=== PATIENT | female | born 1980 | race American Indian/Alaskan Native ===

== ENCOUNTER 2020-07-15 16:53 | Emergency (ER) | payer SELFPAY ==
[2020-07-15 17:11] VITALS: BP 128/77
[2020-07-15] MEDS ORDERED: KETOROLAC 10 MG TAB PO ONE ×2 (17:30→19:36)
--- NOTE | 2020-07-15 17:30 | Emergency Department Report ---
ED Female HPI - General Chief complaint: Vaginal Bleeding Stated complaint: VAGINAL BLEEDING Time Seen by Provider: 07/15/20 17:25 Source: patient Mode of arrival: Ambulatory Limitations: No Limitations - History of Present Illness Initial comments: Patient is a 39-year-old female presents emergency room complaints of vaginal bleeding that began yesterday. She states she used approximately 9 menstrual pads yesterday. She states that it has improved today and she is used approximately 5 pads. She states her last normal menstrual cycle was 07/05/2020 and lasted approximately 3 days. She states that her cycles typically last 3 days. She states that she last saw her AUDIO VISUAL TECHNICIAN in April. She denies having an abnormal Pap smear. She states that she has lower abdominal cramping and pressure when she urinates. She denies any fever, vomiting, diarrhea, dysuria, abnormal vaginal discharge. She denies any hormonal contraceptive use. She states that she does have a past medical history of fibroids. She states that she also has a history of DVT in 2015 and HTN. No allergies to medications. - Related Data Previous Rx's Medication Instructions Recorded Last Taken Type HYDROcodone/APAP 5-325 [[place] 1 each PO Q6HR PRN #14 tablet 05/12/13 Unknown Rx 5/325 mg] Ferrous Sulfate [Ferrous Sulfate 324 mg PO DAILY #60 tablet. 07/15/20 Unknown Rx 324 MG] Naproxen [EC-Naprosyn] 500 mg PO BID PRN #20 tablet. 07/15/20 Unknown Rx traMADoL [Ultram 50 MG tab] 50 mg PO Q6HR PRN #7 tablet 07/15/20 Unknown Rx Allergies Allergy/AdvReac Type Severity Reaction Status Date / Time No Known Allergies Allergy Unverified 05/12/13 08:40 ED Review of Systems ROS: Stated complaint: VAGINAL BLEEDING Other details as noted in HPI Comment: All other systems reviewed and negative ED Past Medical Hx - Past Medical History Previous Medical History?: No Hx Hypertension: No (09/2011) Additional medical history: No prior dislocation. - Surgical History Past Surgical History?: Yes Additional Surgical History: tubal ligation - Social History Smoking Status: Never Smoker Substance Use Type: None - Medications Home Medications: Home Medications Medication Instructions Recorded Confirmed Last Taken Type HYDROcodone/APAP 5-325 [[place] 1 each PO Q6HR PRN #14 tablet 05/12/13 Unknown Rx 5/325 mg] Ferrous Sulfate [Ferrous Sulfate 324 mg PO DAILY #60 tablet. 07/15/20 Unknown Rx 324 MG] Naproxen [EC-Naprosyn] 500 mg PO BID PRN #20 tablet. 07/15/20 Unknown Rx traMADoL [Ultram 50 MG tab] 50 mg PO Q6HR PRN #7 tablet 07/15/20 Unknown Rx ED Physical Exam - General Limitations: No Limitations General appearance: alert, in no apparent distress - Head Head exam: Present: atraumatic, normocephalic - Eye Eye exam: Present: normal appearance - ENT ENT exam: Present: mucous membranes moist - Respiratory Respiratory exam: Present: normal lung sounds bilaterally. Absent: respiratory distress, wheezes, rales, rhonchi, stridor, chest wall tenderness, accessory muscle use, decreased breath sounds, prolonged expiratory - Cardiovascular Cardiovascular Exam: Present: regular rate, normal rhythm, normal heart sounds. Absent: systolic murmur, diastolic murmur, rubs, gallop - GI/Abdominal GI/Abdominal exam: Present: soft, tenderness (suprapubic), normal bowel sounds. Absent: distended, guarding, rebound, rigid - Neurological Exam Neurological exam: Present: alert, oriented X3 - Psychiatric Psychiatric exam: Present: normal affect, normal mood - Skin Skin exam: Present: warm, dry, intact ED Course Vital Signs 07/15/20 07/15/20 17:08 19:48 Temperature 98.1 F Pulse Rate 88 Respiratory 18 18 Rate Blood Pressure 128/77 O2 Sat by Pulse 99 Oximetry ED Medical Decision Making - Lab Data Result diagrams: 07/15/20 17:25 07/15/20 17:25 Lab Results 07/15/20 07/15/20 07/15/20 Range/Units 17:25 17:25 17:25 WBC 7.6 (4.5-11.0) K/mm3 RBC 4.19 (3.65-5.03) M/mm3 Hgb 8.8 L (10.1-14.3) gm/dl Hct 26.5 L (30.3-42.9) % MCV 63 L (79-97) fl MCH 21 L (28-32) pg MCHC 33 (30-34) % RDW 20.3 H (13.2-15.2) % Plt Count 345 (140-440) K/mm3 Lymph % (Auto) 27.9 (13.4-35.0) % [place] % (Auto) 6.8 (0.0-7.3) % Eos % (Auto) 1.8 (0.0-4.3) % Baso % (Auto) 0.7 (0.0-1.8) % Lymph # (Auto) 2.1 (1.2-5.4) K/mm3 [place] # (Auto) 0.5 (0.0-0.8) K/mm3 Eos # (Auto) 0.1 (0.0-0.4) K/mm3 Baso # (Auto) 0.1 (0.0-0.1) K/mm3 Seg Neutrophils % 62.8 (40.0-70.0) % Seg Neutrophils # 4.8 (1.8-7.7) K/mm3 Sodium 140 (137-145) mmol/L Potassium 3.9 (3.6-5.0) mmol/L Chloride 103.4 (98-107) mmol/L Carbon Dioxide 28 (22-30) mmol/L Anion Gap 13 mmol/L BUN 13 (7-17) mg/dL Creatinine 1.0 (0.6-1.2) mg/dL Estimated GFR > 60 ml/min BUN/Creatinine Ratio 13 % Glucose 105 H (65-100) mg/dL Calcium 9.1 (8.4-10.2) mg/dL Total Bilirubin 0.20 (0.1-1.2) mg/dL AST 17 (5-40) units/L ALT 14 (7-56) units/L Alkaline Phosphatase 96 (35-129) units/L Total Protein 6.9 (6.3-8.2) g/dL Albumin 4.2 (3.9-5) g/dL Albumin/Globulin Ratio 1.6 % HCG, Quant < 2 (0-4) mIU/mL Urine Color (Yellow) Urine Turbidity (Clear) Urine pH (5.0-7.0) Ur Specific [place] (1.003-1.030) Urine Protein (Negative) mg/dL Urine Glucose (UA) (Negative) mg/dL Urine Ketones (Negative) mg/dL Urine Blood (Negative) Urine Nitrite (Negative) Urine Bilirubin (Negative) Urine Urobilinogen (<2.0) mg/dL Ur Leukocyte Esterase (Negative) Urine WBC (Auto) (0.0-6.0) /HPF Urine RBC (Auto) (0.0-6.0) /HPF U Epithel Cells (Auto) (0-13.0) /HPF Urine Mucus /HPF 07/15/20 Range/Units 18:39 WBC (4.5-11.0) K/mm3 RBC (3.65-5.03) M/mm3 Hgb (10.1-14.3) gm/dl Hct (30.3-42.9) % MCV (79-97) fl MCH (28-32) pg MCHC (30-34) % RDW (13.2-15.2) % Plt Count (140-440) K/mm3 Lymph % (Auto) (13.4-35.0) % [place] % (Auto) (0.0-7.3) % Eos % (Auto) (0.0-4.3) % Baso % (Auto) (0.0-1.8) % Lymph # (Auto) (1.2-5.4) K/mm3 [place] # (Auto) (0.0-0.8) K/mm3 Eos # (Auto) (0.0-0.4) K/mm3 Baso # (Auto) (0.0-0.1) K/mm3 Seg Neutrophils % (40.0-70.0) % Seg Neutrophils # (1.8-7.7) K/mm3 Sodium (137-145) mmol/L Potassium (3.6-5.0) mmol/L Chloride (98-107) mmol/L Carbon Dioxide (22-30) mmol/L Anion Gap mmol/L BUN (7-17) mg/dL Creatinine (0.6-1.2) mg/dL Estimated GFR ml/min BUN/Creatinine Ratio % Glucose (65-100) mg/dL Calcium (8.4-10.2) mg/dL Total Bilirubin (0.1-1.2) mg/dL AST (5-40) units/L ALT (7-56) units/L Alkaline Phosphatase (35-129) units/L Total Protein (6.3-8.2) g/dL Albumin (3.9-5) g/dL Albumin/Globulin Ratio % HCG, Quant (0-4) mIU/mL Urine Color Yellow (Yellow) Urine Turbidity Clear (Clear) Urine pH 7.0 (5.0-7.0) Ur Specific [place] 1.016 (1.003-1.030) Urine Protein <15 mg/dl (Negative) mg/dL Urine Glucose (UA) Neg (Negative) mg/dL Urine Ketones Neg (Negative) mg/dL Urine Blood Lg (Negative) Urine Nitrite Neg (Negative) Urine Bilirubin Neg (Negative) Urine Urobilinogen < 2.0 (<2.0) mg/dL Ur Leukocyte Esterase Neg (Negative) Urine WBC (Auto) < 1.0 (0.0-6.0) /HPF Urine RBC (Auto) 33.0 (0.0-6.0) /HPF U Epithel Cells (Auto) 4.0 (0-13.0) /HPF Urine Mucus Few /HPF - Radiology Data Radiology results: report reviewed Ordering Physician: JHON VERAS Date of Service: 07/15/20 Procedure(s): US transvaginal Accession Number(s): [id number] cc: JHON VERAS TRANSABDOMINAL AND TRANSVAGINAL PELVIC ULTRASOUND INDICATION / CLINICAL INFORMATION: Pelvic pain and vaginal bleeding. COMPARISON: None available. FINDINGS: Transabdominal: The uterus measures 13.5 x 8.8 x 8.8 cm. The endometrial stripe measures 6.6 mm AP. The right ovary measures 3.0 x 1.7 x 2.8 cm and the left ovary 4.3 x 3.4 x 3.8 cm. There is a 2.7 cm mildly complex cyst in the left ovary without internal blood flow on Doppler exam. There is normal blood flow to both ovaries. No free fluid is seen. The urinary bladder is suboptimally evaluated. Transvaginal: There are multiple small nabothian cysts in the cervix. There is a 2 cm fibroid in the lower uterine body posteriorly. No other abnormality is seen. IMPRESSION: 1. 2.7 cm mildly complex left ovarian cyst is probably physiologic. No free fluid and no evidence of torsion. 2. 2 cm fibroid in the lower uterine body posteriorly. Signer Name: Byron Little MD Signed: 07/15/2020 8:03 PM Workstation Name: [id number] Transcribed By: RT Dictated By: Byron Little MD Electronically Authenticated By: Byron Little MD Signed Date/Time: 07/15/202002 DD/ 58 TD/TT: Print - Medical Decision Making Patient is a 39-year-old female presents emergency room complaints of vaginal bleeding that began yesterday. She states she used approximately 9 menstrual pads yesterday. She states that it has improved today and she is used approximately 5 pads. She states her last normal menstrual cycle was 07/05/2020 and lasted approximately 3 days. She states that her cycles typically last 3 days. She states that she last saw her AUDIO VISUAL TECHNICIAN in April. She denies having a n abnormal Pap smear. She states that she has lower abdominal cramping and pressure when she urinates. She denies any fever, vomiting, diarrhea, dysuria, abnormal vaginal discharge. She denies any hormonal contraceptive use. She states that she does have a past medical history of fibroids. She states that she also has a history of DVT in 2015 and HTN. No allergies to medications. Vitals are normal. On exam patient has suprapubic abdominal tenderness palpation, no guarding, no rebound, no rigidity, normal bowel sounds, no peritoneal signs. Labs with stable anemia with h/h at 8.8 and 26.5. hCG quant is less than 2. UA without evidence of UTI. Pelvic ultrasound: IMPRESSION: 1. 2.7 cm mildly complex left ovarian cyst is probably physiologic. No free fluid and no evidence of torsion. 2. 2 cm fibroid in the lower uterine body posteriorly. Symptoms could likely be related to uterine fibroids. Discussed the importance of AUDIO VISUAL TECHNICIAN follow-up with patient. Patient given Toradol while in the emergency department and symptoms improved. Patient has contraindications to Provera, will not be prescribing Provera at this time. Given prescription for naproxen, tramadol, ferrous sulfate. Advised patient Please take medication as prescribed. Do not drive or operate machinery while taking severe pain medication. Increase your water intake. Follow-up with a primary care doctor. Follow-up with AUDIO VISUAL TECHNICIAN. Return to emergency room for new or worsening symptoms. Critical care attestation.: If time is entered above; I have spent that time in minutes in the direct care of this critically ill patient, excluding procedure time. ED Disposition Clinical Impression: Abnormal uterine bleeding (AUB), Microcytic anemia Abdominal pain Qualifiers: Abdominal location: lower abdomen, unspecified Qualified Code(s): R10.30 - Lower abdominal pain, unspecified Uterine fibroid Qualifiers: Uterine leiomyoma location: unspecified location Qualified Code(s): D25.9 - Leiomyoma of uterus, unspecified Ovarian cyst Qualifiers: Laterality: left Qualified Code(s): N83.202 - Unspecified ovarian cyst, left side Disposition: TO HOME OR SELFCARE Is pt being admited?: No Does the pt Need Aspirin: No Condition: Stable Instructions: Uterine Fibroids, Ovarian Cyst, Iron-Rich Diet Additional Instructions: Please take medication as prescribed. Do not drive or operate machinery while taking severe pain medication. Increase your water intake. Follow-up with a primary care doctor. Follow-up with AUDIO VISUAL TECHNICIAN. Return to emergency room for new or worsening symptoms. Prescriptions: Naproxen [EC-Naprosyn] 500 mg PO BID PRN #20 tablet. PRN Reason: Pain, Moderate (4-6) Ferrous Sulfate [Ferrous Sulfate 324 MG] 324 mg PO DAILY #60 tablet. traMADoL [Ultram 50 MG tab] 50 mg PO Q6HR PRN #7 tablet PRN Reason: Pain , Severe (7-10) Referrals: PRIMARY CARE,MD [Primary Care Provider] - 2-3 Days your, radiology rn [Other] - 2-3 Days Time of Disposition: 20:20 Print Language: [place]
[2020-07-15 17:42] LABS: Basophils # (Auto) 0.1 K/mm3 (0.0-0.1); Basophils % (Auto) 0.7 % (0.0-1.8); Eosinophils # (Auto) 0.1 K/mm3 (0.0-0.4); Eosinophils % (Auto) 1.8 % (0.0-4.3); Hematocrit 26.5 % (30.3-42.9); Hemoglobin 8.8 gm/dl (10.1-14.3); Lymphocytes # (Auto) 2.1 K/mm3 (1.2-5.4); Lymphocytes % (Auto) 27.9 % (13.4-35.0); Mean Corpuscular HGB Conc 33 % (30-34); Monocytes # (Auto) 0.5 K/mm3 (0.0-0.8); Monocytes % (Auto) 6.8 % (0.0-7.3); Platelet Count 345 K/mm3 (140-440); Red Blood Count 4.19 M/mm3 (3.65-5.03)
[2020-07-15 17:44] LABS: Mean Corpuscular Volume 63 fl (79-97); Red Cell Distribution Width 20.3 % (13.2-15.2)
[2020-07-15 18:08] LABS: Alanine Aminotransferase 14 units/L (7-56); Albumin 4.2 g/dL (3.9-5); BUN/Creatinine Ratio 13; Blood Urea Nitrogen 13 mg/dL (7-17); Calcium 9.1 mg/dL (8.4-10.2); Hemolysis Index 4
[2020-07-15 19:04] LABS: Bilirubin,Urine NEG (Negative); Blood,Urine LG (Negative); Color,Urine Yellow (Yellow); Mucus,Urine FEW /HPF; Protein,Urine <15 mg/dL mg/dL (Negative); Urobilinogen,Urine < 2.0 mg/dL (<2.0); WBC,Urine < 1.0 /HPF (0.0-6.0)
--- NOTE | 2020-07-15 20:07 | Ultrasound Report ---
TRANSABDOMINAL AND TRANSVAGINAL PELVIC ULTRASOUND INDICATION / CLINICAL INFORMATION: Pelvic pain and vaginal bleeding. COMPARISON: None available. FINDINGS: Transabdominal: The uterus measures 13.5 x 8.8 x 8.8 cm. The endometrial stripe measures 6.6 mm AP. T he right ovary measures 3.0 x 1.7 x 2.8 cm and the left ovary 4.3 x 3.4 x 3.8 cm. There is a 2.7 cm m ildly complex cyst in the left ovary without internal blood flow on Doppler exam. There is normal blo od flow to both ovaries. No free fluid is seen. The urinary bladder is suboptimally evaluated. Transvaginal: There are multiple small nabothian cysts in the cervix. There is a 2 cm fibroid in the lower uterine body posteriorly. No other abnormality is seen. IMPRESSION: 1. 2.7 cm mildly complex left ovarian cyst is probably physiologic. No free fluid and no evidence of torsion. 2. 2 cm fibroid in the lower uterine body posteriorly. Signer Name: Byron Little MD Signed: 07/15/2020 8:03 PM Workstation Name: [id number]
== END 2020-07-15 21:09 | disposition home or self-care (01) ==
LOC: ED 16:53
DX: N83.202 Unspecified ovarian cyst, left side (principal); D25.9 Leiomyoma of uterus, unspecified; R10.30 Lower abdominal pain, unspecified; D50.9 Iron deficiency anemia, unspecified; N93.9 Abnormal uterine and vaginal bleeding, unspecified; Z79.899 Other long term (current) drug therapy; Z98.51 Tubal ligation status
CPT/HCPCS: 36415; 76830; 76856; 80053; 81001; 84702; 85025